=== PATIENT | male | born 1965 | race Caucasian/White ===

== ENCOUNTER → 2018-10-08 11:26 | Outpatient (CLI) | payer BC, SELFPAY ==
[2017-04-26 14:17] VITALS: BMI 28.3
[2018-07-01 15:55] VITALS: BMI 29.7
[2018-10-08 12:46] LABS: ALB/GLOB Ratio 1.1 RATIO (0.9-2.4); AST(SGOT) 28 U/L (15-37); Alanine Aminotransfer ALT/SGPT 50 U/L (16-61); Albumin, Serum 3.9 g/dL (3.2-5.0); Alkaline Phosphatase 63 U/L (45-117); Anion Gap 6 (5-15); BUN 12 mg/dL (7-18); BUN/Creat Ratio 12.2 RATIO (10-20); Calcium,Total 8.7 mg/dL (8.5-10.1); Chloride 107 mmol/L (98-107); Cholesterol 153 mg/dL (200); Creatinine, Serum 0.98 mg/dL (0.70-1.30); EST Glomerular Filtration Rate 85 mL/min (>60); Est Glom Filt Rate - Afr Amer 103 mL/min (>60); Globulin 3.6 g/dL (2.2-4.2); Glucose 94 mg/dL (74-106); High Density Lipoprotein 40 mg/dL; PSA,Total - Annual Screen 0.66 ng/mL (0.00-4.00); Potassium 4.2 mmol/L (3.5-5.1); Protein, Total 7.5 g/dL (6.4-8.2); Sodium Level 140 mmol/L (136-145); Triglycerides 134 mg/dL; Very Low Density Lipoprotein 27 mg/dL (5-40)
== END ==
PROVIDERS: Family Provider Family Medicine; PCP Family Medicine; Referring Provider Family Medicine; Visit Provider Family Medicine
DX: Z00.00 Encounter for general adult medical examination without abnormal findings (principal); Z12.5 Encounter for screening for malignant neoplasm of prostate
CPT/HCPCS: 36415; 80053; 80061; 84153; G0103

== ENCOUNTER 2018-12-05 07:51 | Day surgery (SDC) | payer BC, SELFPAY ==
[2017-04-26 14:17] VITALS: BMI 28.3
[2018-12-05 08:09] VITALS: BP 134/84; PULSE 82; RESP 16; TEMP 36.5; O2SAT 97; BMI 30.7
--- NOTE | 2018-12-05 09:00 | COLBX_PTH ---
PATIENT: DURGA MINER LOC: EN U#:[id number] AGE/SX: 53/M ROOM: RE12/05/[address]: Dr. Gabe Joaquin MD : 1965 BED: DIS: 12/05/2018 SPEC #: [id number] RECD: 12/05/18 10:53 STATUS: ROCIO KEIRY #: [id number] BERTRAND: 12/05/18 09:[address]: Gabe Joaquin DEPT: SURGICAL PATHOLOGY RECD BY: Delta Quick ENTERED: 12/05/18 12:13 SP TYPE: COLON BX OTHR DR: Dr. Romaine Sebastian DO Tissues: Sigmoid colon biopsy Procedures: Surgery Specimen Level IV HEADER OPERATION: Colonoscopy (MAC) PRE-OP DIAGNOSIS: Screening TISSUE SUBMITTED: Sigmoid polyp at 15 cm MICROSCOPIC DIAGNOSIS Sigmoid colon polyp at 15 cm, biopsy: Hyperplastic polyp. AM:mercedes 12/08/18 MICROSCOPIC DESCRIPTION Slides are reviewed. GROSS DESCRIPTION Received is one container labeled with the patient name and designated sigmoid polyp at 15 cm. The specimen consists of one irregular fragment of light hardy soft tissue that measures 0.4 x 0.2 x 0.1 cm. The specimen is totally submitted in one cassette. ZENY:mercedes 12/06/18 TC: 5 CPT: 89577
--- NOTE | 2018-12-05 09:18 | HP.PCM_ITS ---
History of Present Illness Date of Admission: 12/05/18 The patient is a 53 year old M here for screening colonoscopy. 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 The patient reports no abdominal pain or blood in his stool. He denies any family history of colon cancer. He has never had a colonoscopy in the past. Past Medical/Surgical History - Planned Operation Planned Operative Procedure/s: cscope open access Date of Operative Procedure: 12/05/18 Permit Signed: No S.O.S: No Is This Patient Having a Total Joint: No - Previous Hospitalizations/Surgeries HX Hospitalizations: No HX of Surgeries: Septoplasty. Choley. heart stent x3 Any Problems With Anesthesia: No You/Your Family Experience Fever (Hyperthermia) With Anes: No Cholinesterase deficiency: No - Cardiovascular Hx Chest Pain within Last 2 months: No Hx of Irregular Heartbeat and/or Afib: No - cad/stents/follows with dr cheema/last visit 06/2018 Hx Heart Attack: No Hx Congestive Heart Failure: No Hx Rheumatic Fever: No Hx Hypertension: Yes - controlled with med Hx Internal Defibrillator: No Hx Pacemaker: No Hx Cardiac Catheterization: Yes - 2016 [facility] What facility was last heart cath performed: [facility] Date of last Heart Cath: 2016 Hx Cardiac Surgery/Stents/Etc.: Yes - stents Hx Stress Test: Yes - 10/2017 HX Edema: No Hx Pain in Legs when Walking/Leg Cramps: No - Respiratory Chronic Cough: No HX of Shortness of Breath: Yes - slightly sob with 2 flights of stairs Hx Chronic Obstructive Pulmonary Disease (COPD): No Hx Asthma: No Hx Emphysema: No Hx Sleep Apnea: No Hx Oxygen Use at Home: No Hx Respiratory Tract Infection/Cold (presently): No Do You Snore Loudly (louder than talking or can be heard): No Do You Often Feel Tired/ Fatigued/ Sleepy Dring Daytime?: Yes Has Anyone Observed You Stop Breathing During Sleep?: No Result (for STOP score): Positive Hx Smoking: No Smoking Status: Never smoker - Gastrointestinal Hx Gastroesophageal Reflux: No Hx Gastrointestinal Disorders: No Hx Gastrointestinal Bleed: No Hx Ulcer: No Hx Hiatal Hernia: No Difficulty Chewing/Swallowing: No Recent Onset of Swallowing Problems: No Special diet followed at home: No Hx Unplanned Weight Loss of 20#: No HX Unplanned Weight Gain of 20#: No - Neurological Hx Seizures: No HX Syncope/Blackout Spells/Unconsciousness: No Hx CVA/Stroke: No Hx Transient Ischemic Attacks (TIA): No Hx Multiple Sclerosis: No Hx Parkinson's Disease: No Hx Head/Neck Injury: No Hx Headaches: No Hx Back Injury/Pain: Yes - occ back pain Recent Onset of Speech Difficulty: No Restless Legs: No Does patient have nerve stimulator: No Patient instructed to have device shut off: No Rep notified?: No - Blood Disorder Hx Leukemia: No Bleeding Tendencies: No - daily plavix and asa Hx Deep Vein Thrombosis: No Hx High Cholesterol: Yes - on med Blood Transmitted Disease: No Hx Hepatitis: No Hx Cirrhosis: No Hx Anemia: No Hx Blood Disorders: No - Genitourinary Hx Renal Disease: No Hx Dialysis: No - Musculoskeletal Hx Arthritis: No Hx Rheumatoid Arthritis: No Hx Gout: No Recent Onset of an Orthopedic Problem: No - Endocrine Hx Diabetes: No Thyroid Disease: No Hx Steroid Therapy: No - Psycho/Social Hx Substance Use: No Hx Alcohol Use: Yes - occ Hx Anxiety: No Hx Depression: No Mental Illness: No Hx Dementia: No - Miscellaneous Hx Cancer: No Recent Exposure to Contagious Disease: No Active MRSA: No Hx of C-Diff: No Any Loose Teeth: No Allergies No Known Allergies Allergy (Verified 12/01/18 11:45) - Discharge Is Pt Admitted From a Assisted, or a Alf: No Who Could Help: family After D/C, Where Do you Plan to Go: Return Home - Physical Exam General: Alert, Oriented x3, Cooperative Lungs: Normal air movement Cardiovascular: Regular rate, Regular Rhythm Abdomen: Soft, Non Tender, Non-Distended Vital Signs Temp Pulse Resp BP Pulse Ox 97.7 F L 82 16 134/84 H 97 12/05/18 08:09 12/05/18 08:09 12/05/18 08:09 12/05/18 08:09 12/05/18 08:09 Oxygen Delivery Method Room Air Weight: 219 lb 12.814 oz Body Mass Index (BMI) 30.7 Assessment/Plan All Active Problems (Last Reviewed 07/01/18 @ 16:08 by Jose Cruz Cheema MD) Abnormal nuclear stress test (Resolved) 53-year-old male with screening colonoscopy 1. I explained endoscopy in detail to the patient. I explained the risks including but not limited to stroke or heart attack with anesthesia, perforation of the GI tract, bleeding, infection. I explained that any of these could necessitate further emergency surgery. The patient understands and all questions were answered sufficiently. The patient wishes to proceed with procedure. 2. I did explain the patient is a slightly increased risk of bleeding due to the being on Plavix. Gabe Joaquin MD Pager: [facility] [address] [place] [address] [address] [place] [address] Office: Surgery Risks - Colonoscopy Risks Include but are not Limited To: Risks include but are not limited to: Bleeding, perforation requiring further surgery, inability to complete colonoscopy requiring barium enema.
[2018-12-05 09:50] VITALS: BP 104/78; BP 134/84; PULSE 78; RESP 16; TEMP 36.6; O2SAT 94
[2018-12-05 09:55] VITALS: BP 109/78; BP 134/84; PULSE 73; RESP 16; O2SAT 96
[2018-12-05 10:00] VITALS: BP 112/71; BP 134/84; PULSE 71; RESP 16; O2SAT 96
[2018-12-05 10:05] VITALS: BP 117/71; BP 134/84; PULSE 67; RESP 16; TEMP 36.4; O2SAT 96
[2018-12-05 10:27] VITALS: BP 134/84
--- OUTSIDE RECORDS SUMMARY | 2019-02-08 14:51 | XMS RPT_ITS ---
:1965 Author Organization OHIP Care Team Providers Name Role Phone Gabe Joaquin Attending Unavailable Emnai, Gabe Referring Unavailable Romaine Sebastian Primary Care Unavailable Gabe Joaquin Attending Unavailable Emani, Gabe Referring Unavailable Romaine Sebastian Primary Care Unavailable Emani, Gabe Consulting Unavailable Mel Patel Attending Unavailable Aury, [place] Attending Unavailable Romulo, Romaine Referring Unavailable Romaine Sebastian Primary Care Unavailable Aury, Jose Cruz Attending Unavailable [place], Romaine Referring Unavailable Romulo, Romaine Attending Unavailable Romulo, Romaine Referring Unavailable [place], Romaine Primary Care Unavailable Aury, [place] Consulting Unavailable Nurse, Standard Attending Unavailable Romulo, Romaine Referring Unavailable PROBLEMS PROBLEMS DATE TYPE CONDITION / CODE ATTENDING STATUS SOURCE 10/08/2018 Unknown Z12.5 - Encounter for RomuloCelia [facility] screening for [facility] malignant neoplasm of [facility] prostate / Repository Z12.5(ICD-10) 10/08/2018 Unknown Z00.00 - Encounter Romulo Active [facility] for general adult [facility] without abnormal Repository findings / Z00.00(ICD-10) 07/01/2018 Unknown E78.00 - Pure Aury, [place] Active [facility] hypercholesterolemia, Community unspecified / Hospital E78.00(ICD-10) Repository 07/01/2018 Unknown I25.118 - Aury, Jose Cruz Active Jorge A Atherosclerotic heart Community disease of [facility] coronary artery with Repository other forms of angina pectoris / I25.118(ICD-10) 02/27/2018 Unknown Z95.5 - Presence of Aury, [place] Active [facility] coronary angioplasty Community implant and graft / Hospital Z95.5(ICD-10) Repository PROCEDURES PROCEDURES No Procedure Records FoundRESULTS RESULTS HISTORY AND PHYSICAL Observed: 12/05/2018 Status: F Source: JORGE A EXAM 9:18 AM [facility] REPOSITORY [facility] Medical Records Department [address] [place] [address] History and Physical 12/05/18 09 MR#: [id number] Acct: [id number] Name: DURGA MINER Rep #: [id number] : 1965 53 From: Gabe Joaquin MD PCP: Romaine Sebastian DO Status: REG [facility] Location: [place] [address] History of Present Illness Date of Admission: 01/18/19 The patient is a 53 year old M here for screening colonoscopy. 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 The patient reports no abdominal pain or blood in his stool. He denies any family history of colon cancer. He has never had a colonoscopy in the past. Past Medical/Surgical History - Planned Operation Planned Operative Procedure/s: cscope open access Date of Operative Procedure: 12/05/18 Permit Signed: No S.O.S: No Is This Patient Having a Total Joint: No - Previous Hospitalizations/Surgeries HX Hospitalizations: No HX of Surgeries: Septoplasty. Choley. heart stent x3 Any Problems With Anesthesia: No You/Your Family Experience Fever (Hyperthermia) With Anes: No Cholinesterase deficiency: No - Cardiovascular Hx Chest Pain within Last 2 months: No Hx of Irregular Heartbeat and/or Afib: No - cad/stents/follows with dr cheema/last visit 06/2018 Hx Heart Attack: No Hx Congestive Heart Failure: No Hx Rheumatic Fever: No Hx Hypertension: Yes - controlled with med Hx Internal Defibrillator: No Hx Pacemaker: No Hx Cardiac Catheterization: Yes - 2016 [facility] What facility was last heart cath performed: [facility] Date of last Heart Cath: 2016 Hx Cardiac Surgery/Stents/Etc.: Yes - stents Hx Stress Test: Yes - 10/2017 HX Edema: No Hx Pain in Legs when Walking/Leg Cramps: No - Respiratory Chronic Cough: No HX of Shortness of Breath: Yes - slightly sob with 2 flights of stairs Hx Chronic Obstructive Pulmonary Disease (COPD): No Hx Asthma: No Hx Emphysema: No Hx Sleep Apnea: No Hx Oxygen Use at Home: No Hx Respiratory Tract Infection/Cold (presently): No Do You Snore Loudly (louder than talking or can be heard): No Do You Often Feel Tired/ Fatigued/ Sleepy Dring Daytime?: Yes Has Anyone Observed You Stop Breathing During Sleep?: No Result (for STOP score): Positive Hx Smoking: No Smoking Status: Never smoker - Gastrointestinal Hx Gastroesophageal Reflux: No Hx Gastrointestinal Disorders: No Hx Gastrointestinal Bleed: No Hx Ulcer: No Hx Hiatal Hernia: No Difficulty Chewing/Swallowing: No Recent Onset of Swallowing Problems: No Special diet followed at home: No Hx Unplanned Weight Loss of 20#: No HX Unplanned Weight Gain of 20#: No - Neurological Hx Seizures: No HX Syncope/Blackout Spells/Unconsciousness: No Hx CVA/Stroke: No Hx Transient Ischemic Attacks (TIA): No Hx Multiple Sclerosis: No Hx Parkinson's Disease: No Hx Head/Neck Injury: No Hx Headaches: No Hx Back Injury/Pain: Yes - occ back pain Recent Onset of Speech Difficulty: No Restless Legs: No Does patient have nerve stimulator: No Patient instructed to have device shut off: No Rep notified?: No - Blood Disorder Hx Leukemia: No Bleeding Tendencies: No - daily plavix and asa Hx Deep Vein Thrombosis: No Hx High Cholesterol: Yes - on med Blood Transmitted Disease: No Hx Hepatitis: No Hx Cirrhosis: No Hx Anemia: No Hx Blood Disorders: No - Genitourinary Hx Renal Disease: No Hx Dialysis: No - Musculoskeletal Hx Arthritis: No Hx Rheumatoid Arthritis: No Hx Gout: No Recent Onset of an Orthopedic Problem: No - Endocrine Hx Diabetes: No Thyroid Disease: No Hx Steroid Therapy: No - Psycho/Social Hx Substance Use: No Hx Alcohol Use: Yes - occ Hx Anxiety: No Hx Depression: No Mental Illness: No Hx Dementia: No - Miscellaneous Hx Cancer: No Recent Exposure to Contagious Disease: No Active MRSA: No Hx of C-Diff: No Any Loose Teeth: No Allergies No Known Allergies Allergy (Verified 12/01/18 11:45) - Discharge Is Pt Admitted From a Halfway, or a Mcfp: No Who Could Help: family After D/C, Where Do you Plan to Go: Return Home - Physical Exam General: Alert, Oriented x3, Cooperative Lungs: Normal air movement Cardiovascular: Regular rate, Regular Rhythm Abdomen: Soft, Non Tender, Non-Distended Vital Signs Temp Pulse Resp BP Pulse Ox 97.7 F L 82 16 134/84 H 97 12/05/18 08:09 12/05/18 08:09 12/05/18 08:09 12/05/18 08:09 12/05/18 08:09 Oxygen Delivery Method Room Air Weight: 219 lb 12.814 oz Body Mass Index (BMI) 30.7 Assessment/Plan All Active Problems (Last Reviewed 07/01/18 @ 16:08 by Jose Cruz Cheema MD) Abnormal nuclear stress test (Resolved) 53-year-old male with screening colonoscopy 1. I explained endoscopy in detail to the patient. I explained the risks including but not limited to stroke or heart attack with anesthesia, perforation of the GI tract, bleeding, infection. I explained that any of these could necessitate further emergency surgery. The patient understands and all questions were answered sufficiently. The patient wishes to proceed with procedure. 2. I did explain the patient is a slightly increased risk of bleeding due to the being on Plavix. Gabe Joaquin MD Pager: [facility] [address] [place] [address], [address] [place] [address] Office: Surgery Risks - Colonoscopy Risks Include but are not Limited To: Risks include but are not limited to: Bleeding, perforation requiring further surgery, inability to complete colonoscopy requiring barium enema. 12/05/18917 <Electronically signed by Gabe Joaquin MD> Date Gabe Joaquin MD Cosigner Signature: Date (if applicable) CC: Gabe Joaquin MD; Romaine Sebastian DO Signed COLON BIOPSY (CHOOSE Observed: 12/05/2018 Status: F Source: [facility]) 9:00 AM [facility] REPOSITORY Patient: DURGA MINER : 1965 (53/M) Acct Num: [id number] Phys: Gabe Joaquin MD Unit Num: [id number] Loc: EN Specimen: [id number] Received: 12/05/181052 Spec Type: COLON BX TISSUES 1 TISSUES: Sigmoid colon biopsy GROSS DESCRIPTION Received is one container labeled with the patient name and designated sigmoid polyp at 15 cm. The specimen consists of one irregular fragment of light hardy soft tissue that measures 0.4 x 0.2 x 0.1 cm. The specimen is totally submitted in one cassette. AM:sp 12/06/18 TC: 5 CPT: 44668 HEADER OPERATION: Colonoscopy (MAC) PRE-OP DIAGNOSIS: Screening TISSUE SUBMITTED: Sigmoid polyp at 15 cm MICROSCOPIC DESCRIPTION Slides are reviewed. MICROSCOPIC DIAGNOSIS Sigmoid colon polyp at 15 cm, biopsy: Hyperplastic polyp. AM:sp 12/08/18 Signed Pankaj Yoo DO 12/08/18 <signature on file> Performed By: #### PCOLBX #### [facility] [address] [place], [address] COMPREHENSIVE METABOLIC Collected: 10/08/2018 Status: F Source: [facility] 11:45 AM [facility] REPOSITORY TYPE CODE TESTS RESULT OUT OF RANGE REFERENCE UNITS LAB L501.0100 74-106 mg/dL Normal GLU 94 Result Comment: Please note revised GLUCOSE reference range effective 2017. LAB L501.1000 7-18 mg/dL Normal BUN 12 LAB L501.1100 0.70-1.30 mg/dL Normal CREAT,SERUM 0.98 Result Comment: The validity of the calculated GFR AND GFRAA in patients over 70 years has not been determined. Clinical correlation is essential. LAB L501.1110 >60 mL/min Normal EST GFR 85 Result Comment: Non- GFR Calc LAB L501.1115 >60 mL/min Normal EST GFR - AA 103 Result Comment: GFR Calc LAB L501.1300 10-20 RATIO Normal BUN/CRE 12.2 LAB L501.1500 6.4-8.2 g/dL T Normal PROT 7.5 LAB L501.1800 3.2-5.0 g/dL Normal ALB 3.9 LAB L501.1950 2.2-4.2 g/dL Normal GLOB 3.6 LAB L501.2000 0.9-2.4 RATIO Normal A/G 1.1 LAB L501.2200 8.5-10.1 mg/dL CA Normal 8.7 LAB L501.4100 15-37 U/L Normal AST 28 LAB L501.4305 45-117 U/L Normal ALK P 63 LAB L501.4405 16-61 U/L Normal ALT 50 LAB L501.4600 0.20-1.00 mg/dL T Normal BILI 0.70 LAB L501.5300 136-145 mmol/L NA Normal 140 LAB L501.5600 3.5-5.1 mmol/L K Normal 4.2 LAB L501.5900 98-107 mmol/L CL Normal 107 LAB L501.6100 21.0-32.0 mmol/L Normal CO2 27.0 LAB L501.6200 5-15 Normal GAP 6 Performed By: #### L500.4050, L500.4100, L501.9910 #### [facility] [address] [place], [address] LIPID PROFILE Collected: 10/08/2018 Status: F Source: JORGE A 11:45 AM [facility] REPOSITORY TYPE CODE TESTS RESULT OUT OF RANGE REFERENCE UNITS LAB L501.4900 200 mg/dL Normal CHOL 153 Result Comment: <200 mg/dL Desirable 200-240 mg/dL Borderline >240 mg/dL High Risk LAB L501.5000 mg/dL Normal TRIG 134 Result Comment: The drugs N-Acetylcysteine and Metamizole may falsely depress this assay. Serum Triglycerides Reference Interval Normal <150 mg/dL Borderline high 150 - 199 mg/dL High 200 - 499 mg/dL Very High > or = 500 mg/dL LAB L501.6400 mg/dL Normal HDL 40 Result Comment: The drugs N-Acetylcysteine and Metamizole may falsely depress this assay. Reference Range HDL <40 mg/dL Low HDL Cholesterol HDL >or= 60 mg/dL High HDL Cholesterol LAB L501.6500 0-130 mg/dL Normal LDL 86 LAB L501.6600 5-40 mg/dL Normal VLDL 27 Performed By: #### L500.4050, L500.4100, L501.9910 #### [facility] [address] [place], [place], [id number] PSA,TOTAL - ANNUAL Collected: 10/08/2018 Status: F Source: JORGE A SCREEN 11:45 AM [facility] REPOSITORY TYPE CODE TESTS RESULT OUT OF RANGE REFERENCE UNITS LAB L501.9910 0.00-4.00 ng/mL Normal PSA,TOT 0.66 SCREEN Result Comment: This test was performed using the TPSA assay method for the [employer] chemistry system. Values obtained with different assay methods cannot be used interchangably. When changing PSA assays in the course of monitoring a patient, additional sequential testing should be carried out to confirm baseline values. Performed By: #### L500.4050, L500.4100, L501.9910 #### [facility] [address] [place], [address] CARDIOLOGY VISIT Observed: 07/01/2018 Status: F Source: [place] RE[facility] 4:12 PM [facility] REPOSITORY [facility] [address] [place] [address] OFFICE VISIT Date of Service: 07/01/18 MR#: [id number] Acct: [id number] Name: DURGA MINER Rep #: [id number] : 1965 Provider: Jose Cruz Cheema MD Age/Sex: 52/M Location: [facility] Status: Signed HPI HPI Chief Complaint: Follow up visit Details: DURGA MINER, is a 52 M who presents to the office today for a follow-up cardiovascular visit. He had initially presented in October 2016 with chest discomfort he underwent stress testing which demonstrated significant ischemia he underwent angioplasty and stenting of the left anterior descending artery as well as the ramus intermedius/first diagonal vessel. He presented again in April 2017 with chest discomfort he underwent repeat angioplasty and stenting to the diagonal vessel. He also has a history of hyperlipidemia. The cardiac catheterization in April had demonstrated proximal diagonal with 90% stenosis the previous LAD stent was patent the circumflex artery was angiographic and normal in the right coronary artery was angiographically normal. He had been doing well until October 2017 when he presented again with chest discomfort. He underwent a repeat cardiac catheterization which demonstrated 90% stenosis of the stents to the left anterior descending artery and diagonal vessel. He underwent angioplasty and stenting with a drug-eluting stent with a 2.25 8 mm Promus drug-eluting stent to the diagonal vessel and a 3.0 12 mm drug-eluting stent to the left anterior descending artery. There was no encroachment of the left main coronary artery. He has done well since then but he presents for follow-up evaluation today with no chest pain or shortness breath or paroxysmal nocturnal dyspnea or pedal edema no dizziness or diaphoresis no near syncope or syncope. His physical exam today appears to be completely normal. Intake Vital Signs08/14/18 Height 6 ft 07/01/18 Weight: 219 lb 07/01/18 Body Mass Index (BMI) 29.7 07/01/18 Blood Pressure 122/72 07/01/18 Blood Pressure Location Lt brachial Intake Visit Reasons: 4 M FU Accompanied by: none Is patient in pain?: No Allergies No Known Allergies Allergy (Verified 07/01/18 15:56) Medications Ascorbic Acid [Vitamin C] 1,000 mg PO DAILY 10/19/16 [History Confirmed 07/01/18] Aspirin [Aspirin, Baby] 81 mg PO DAILY@0800 10/19/16 [History Confirmed 07/01/18] Melatonin 3 mg PO QHS PRN 10/19/16 [History Confirmed 07/01/18] Pyridoxine HCl [Vitamin B-6] 200 mg PO BID 10/19/16 [History Confirmed 07/01/18] Nitroglycerin [Nitrostat] 0.4 mg SL PRN PRN 10/29/17 [History Confirmed 07/01/18] rosuvastatin 40 mg tablet 40 mg PO QDAY #90 tab 11/28/17 [Rx Confirmed 07/01/18] clopidogrel 75 mg tablet 75 mg PO DAILY #90 tab 01/02/18 [Rx Confirmed 07/01/18] metoprolol succinate ER 25 mg tablet,extended release 24 hr 25 mg PO DAILY #90 tab 01/02/18 [Rx Confirmed 07/01/18] folic acid 400 mcg tablet 400 mcg PO QDAY 02/27/18 [History Confirmed 07/01/18] losartan 25 mg tablet 25 mg PO QDAY #30 tab 03/03/18 [Rx Confirmed 07/01/18] [facility] Medical History 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) Hyperlipidemia (Chronic) Angina pectoris, unstable (Chronic) Surgical History S/P coronary artery stent placement (Chronic) History of left heart catheterization (Chronic) Family History Father CAD (coronary artery disease) CVA (cerebral vascular accident) Hx of CABG, Onset Age: 66 and valve replacement Social History Smoking Status: Never smoker alcohol intake: current alcohol intake frequency: a few times a week Alcohol type: beer, wine substance use type: does not use caffeine: Yes Type: coffee Number of servings: 2 what type of physical activity do you participate in: none seatbelt use: always do you feel safe at home: Yes ROS Const Const: Negative for fatigue, weakness, night sweats, excessive sweating, frequent falls, headache(s) or daytime sleepiness Eyes Eyes: Negative for loss of peripheral vision, transient loss of vision, blind spots, double vision or blurry vision ENT ENT: Negative for headache(s), dizziness, balance problems, Nosebleed/epistaxis, tongue swelling or lip swelling Cardio Chest Pain: No Palpitations: No Edema: None Muscle aches with walking: None Resp Respiratory: Negative for SOB at rest, SOB orthopnea\SOB lying down, Cough, paroxysmal nocturnal dyspnea or SOB with activity GI GI: Negative nausea, vomiting, heartburn, black,tarry stools or bright, red blood in stools : Negative for hematuria Musc Musc: Negative for balance problems, muscle aches/ myalgia, muscle weakness or joint pain Skin Skin: Negative non-healing lesions, unusual bruising or rash Neuro Neuro: Negative for weakness, frequent falls, headache(s), double vision, dizziness, lightheadedness, orthostatic symptoms, blurry vision or lack of coordination Walt Hematologic/Lymphatic: Negative for easy bruising or easy bleeding Endo Endo: Negative for fatigue, excessive sweating, cold intolerance, heat intolerance, increased thirst/drinking or hair loss Psych Psych: Negative for anxiety or depression Allergy Allergy/Immunology: Negative for throat swelling, Negative for tongue swelling, Negative for hives, Negative for rash, Negative for lip swelling Cardiology Exam Const Appearance: cooperative, healthy appearing, well developed, well groomed and no acute distress Nutritional Appearance: well nourished and average body habitus Orientation: alert, awake and oriented x3 Head Head: normal to inspection, normocephalic and atraumatic Ears: hearing grossly normal bilaterally and external ears normal Nose: external nose normal, nasal mucous membranes and turbinates normal, nares normal, septum normal, no nasal discharge Face and Sinus: face symmetric Mouth: oral mucosae normal, tongue normal, oropharynx normal and moist mucous membranes Teeth and gingiva: dentition normal Throat: posterior oropharynx normal, tonsils normal and uvula midline Eyes General: appearance normal, both eyes and all related structures Eyelids: eyelids normal Conjunctivae: conjunctivae normal Pupils: PERRL, normal by confrontation and accommodation normal EOM: EOM intact bilaterally Neck Neck: normal visual inspection, trachea midline and no JVD JVD: +5 Carotids: normal carotid upstroke and bounding pulses Chest Chest inspection: normal inspection of the chest, symmetric chest movement and normal respiratory effort Auscultation: Bilateral: Clear to Auscultation Cardio Palpation: normal PMI Rate: regular rate Rhythm: regular rhythm Heart sounds: S1 normal, S2 normal and normal, physiologic split S2; negative rub, gallop or murmur GI GI: normal to inspection, soft, no hepatosplenomegaly and bowel sounds present Neuro General: alert, awake, oriented x3, no focal sensory deficit, gait normal and moves all extremities Skin Skin: no rashes or lesions noted Extremities Pulses: Normal: Right Femoral Pulse, Left Femoral Pulse, Right Dorsalis Pedis Pulse, Left Dorsalis Pedis Pulse, Right Posterior Tibial Pulse, Left Posterior Tibial Pulse, Right Radial Pulse, Left Radial Pulse Lower Extremity Edema: None: Bilateral Musculoskel Musculoskeletal: No joint tenderness Psych Psychological: normal affect Assessment AND Plan 1. 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 He appears to be doing well at this time my recommendation is to continue the current medical therapy I like to see him again in approximately 6 months and at that time consider a stress test. He is in agreement with this approach. 2. Pure hypercholesterolemia E78.00 Plan He does have a history of hyperlipidemia and I recommend that we obtain a lipid profile on his high intensity statin. No other major changes will be made. Thank you for allowing me to participate in the care of your patient. 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 [place] [address] OFFICE VISIT Date of Service: 02/27/18 MR#: [id number] Acct: [id number] Name: DURGA MINER Rep #: [id number] : 1965 Provider: Jose Cruz Cheema MD Age/Sex: 52/M Location: [facility] Status: Signed HPI HPI Chief Complaint: follow up Details: DURGA MINER, is a 52 M who presents to the office today for a follow-up cardiovascular visit. He had initially presented in October 2016 with chest discomfort he underwent stress testing which demonstrated significant ischemia he underwent angioplasty and stenting of the left anterior descending artery as well as the ramus intermedius/first diagonal vessel. He presented again in April 2017 with chest discomfort he underwent repeat angioplasty and stenting to the diagonal vessel. He also has a history of hyperlipidemia. The cardiac catheterization in April had demonstrated proximal diagonal with 90% stenosis the previous LAD stent was patent the circumflex artery was angiographic and normal in the right coronary artery was angiographically normal. He had been doing well until October 2017 when he presented again with chest discomfort. He underwent a repeat cardiac catheterization which demonstrated 90% stenosis of the stents to the left anterior descending artery and diagonal vessel. He underwent angioplasty and stenting with a drug-eluting stent with a 2.25 8 mm Promus drug-eluting stent to the diagonal vessel and a 3.0 12 mm drug-eluting stent to the left anterior descending artery. There was no encroachment of the left main coronary artery. He has done well since then but he presents for follow-up evaluation today with no chest pain or shortness breath or paroxysmal nocturnal dyspnea or pedal edema no dizziness or diaphoresis no near syncope or syncope. He is of course concerned that in 6 months time he may be presented with chest discomfort again and wants to know what his options are. He has had a bothersome cough which has not restrained his activities but is more of an irritant. His did have some concerns about whether using some supplements may help in preventing further growth of scar tissue. His physical exam today appears to be completely normal. Intake Vital Signs02/27/18 Height 6 ft 02/27/18 Weight: 217 lb 02/27/18 Body Mass Index (BMI) 29.4 02/27/18 Blood Pressure 124/80 02/27/18 Blood Pressure Location Lt brachial Intake Visit Reasons: 6 M Visitor Service Assistant Required: No Accompanied by: Is patient in pain?: No Allergies No Known Allergies Allergy (Verified 02/27/18 16:24) Medications Ascorbic Acid [Vitamin C] 1,000 mg PO DAILY 10/19/16 [History Confirmed 02/27/18] Aspirin [Aspirin, Baby] 81 mg PO DAILY@0800 10/19/16 [History Confirmed 02/27/18] Melatonin 3 mg PO QHS PRN 10/19/16 [History Confirmed 02/27/18] Pyridoxine HCl [Vitamin B-6] 200 mg PO BID 10/19/16 [History Confirmed 02/27/18] Nitroglycerin [Nitrostat] 0.4 mg SL PRN PRN 10/29/17 [History Confirmed 02/27/18] rosuvastatin 40 mg tablet 40 mg PO QDAY #90 tab 11/28/17 [Rx Confirmed 02/27/18] clopidogrel 75 mg tablet 75 mg PO DAILY #90 tab 01/02/18 [Rx Confirmed 02/27/18] metoprolol succinate ER 25 mg tablet,extended release 24 hr 25 mg PO DAILY #90 tab 01/02/18 [Rx Confirmed 02/27/18] lisinopril 5 mg tablet 5 mg PO DAILY #90 tab 01/03/18 [Rx Confirmed 02/27/18] folic acid 400 mcg tablet 400 mcg PO QDAY 02/27/18 [History Confirmed 02/27/18] [facility] Medical History 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) Hyperlipidemia (Chronic) Angina pectoris, unstable (Chronic) Surgical History S/P coronary artery stent placement (Chronic) History of left heart catheterization (Chronic) Family History Father CAD (coronary artery disease) CVA (cerebral vascular accident) Hx of CABG, Onset Age: 66 and valve replacement Social History Smoking Status: Never smoker alcohol intake: current alcohol intake frequency: a few times a week Alcohol type: beer, wine substance use type: does not use caffeine: Yes Type: coffee Number of servings: 2 what type of physical activity do you participate in: none seatbelt use: always do you feel safe at home: Yes ROS Const Const: Negative for body ache, fever(s), chills, night sweats, daytime sleepiness, difficulty sleeping, weight gain, weight loss, increased appetite, poor appetite, anorexia, other, frequent falls, headache(s), weakness, fatigue or excessive sweating Eyes Eyes: Negative for blind spots, loss of peripheral vision, transient loss of vision, change in vision, floaters, tunnel vision, other, blurry vision or double vision ENT ENT: Negative for hearing loss, tinnitus, Nosebleed/epistaxis, post nasal drip, lip swelling, tongue swelling, bleeding gums, hoarseness, neck pain, dry mouth, other, balance problems, dizziness or headache(s) Cardio Chest Pain: No Palpitations: No Edema: None Muscle aches with walking: None Resp Respiratory: Positive for Cough; negative for SOB with activity, SOB at rest, SOB orthopnea\SOB lying down, Coughing up blood/hemoptysis, chest congestion, pain on inspiration, snoring, stridor, wheezing, crackles, paroxysmal nocturnal dyspnea or other GI GI: Negative nausea, vomiting, heartburn, constipation, belching, bloating, cramping, vomiting blood/hematemesis, bright, red blood in stools, black,tarry stools, loose stools, Difficulty Swallowing or other : Negative for hematuria, frequent nighttime urination/ nocturia, erectile dysfunction or abnormal vaginal bleeding Musc Musc: Negative for muscle aches/ myalgia, muscle weakness, joint pain or balance problems Skin Skin: Negative redness, non-healing lesions, rash, unusual bruising, skin ulcer, wounds, jaundice or other Neuro Neuro: Negative for dizziness, lightheadedness, near syncope, syncope, orthostatic symptoms, frequent falls, headache(s), weakness, confusion, memory loss, restless legs, blurry vision, double vision, vertigo, seizures, lack of coordination or other Walt Hematologic/Lymphatic: Negative for easy bleeding, easy bruising or enlarged lymph nodes Endo Endo: Negative for fatigue, cold intolerance, heat intolerance, excessive sweating, flushing, increased thirst/drinking, increased hunger, hair loss, hair growth or other Psych Psych: Negative for anxiety, depression, thoughts of harming anyone, thoughts of harming yourself, panic attacks, visual hallucinations or audible hallucinations Allergy Allergy/Immunology: Negative for lip swelling, Negative for tongue swelling, Negative for rash Cardiology Exam Const Appearance: cooperative, healthy appearing, well developed, well groomed and no acute distress Nutritional Appearance: well nourished and average body habitus Orientation: alert, awake and oriented x3 Head Head: normal to inspection, normocephalic and atraumatic Ears: hearing grossly normal bilaterally and external ears normal Nose: external nose normal, nasal mucous membranes and turbinates normal, nares normal, septum normal, no nasal discharge Face and Sinus: face symmetric Mouth: oral mucosae normal, tongue normal, oropharynx normal and moist mucous membranes Teeth and gingiva: dentition normal Throat: posterior oropharynx normal, tonsils normal and uvula midline Eyes General: appearance normal, both eyes and all related structures Eyelids: eyelids normal Conjunctivae: conjunctivae normal Pupils: PERRL, normal by confrontation and accommodation normal EOM: EOM intact bilaterally Neck Neck: normal visual inspection, trachea midline and no JVD JVD: +5 Carotids: normal carotid upstroke and bounding pulses Chest Chest inspection: normal inspection of the chest, symmetric chest movement and normal respiratory effort Auscultation: Bilateral: Clear to Auscultation Cardio Palpation: normal PMI Rate: regular rate Rhythm: regular rhythm Heart sounds: S1 normal, S2 normal and normal, physiologic split S2; negative rub, gallop or murmur GI GI: normal to inspection, soft, no hepatosplenomegaly and bowel sounds present Neuro General: alert, awake, oriented x3, no focal sensory deficit, gait normal and moves all extremities Skin Skin: no rashes or lesions noted Extremities Pulses: Normal: Right Femoral Pulse, Left Femoral Pulse, Right Dorsalis Pedis Pulse, Left Dorsalis Pedis Pulse, Right Posterior Tibial Pulse, Left Posterior Tibial Pulse, Right Radial Pulse, Left Radial Pulse Lower Extremity Edema: None: Bilateral Musculoskel Musculoskeletal: No joint tenderness Psych Psychological: normal affect Assessment AND Plan 1. S/P coronary artery stent placement Z95.5 PAOLA to LAD and DX 10/22/2016; PAOLA to DX #1 04/26/2017; PAOLA to mid diagonal and proximal LAD 10/30/17 Plan He appears to be doing well at this time status post multiple stenting procedures. He is of course concerned but I reassured him that I think that he will do quite well. I like to see him again in approximately 4 months. I have suggested that he continue with a lot of supplements as well as his current medications. With regard to his chronic cough my recommendation will be to discontinue the lisinopril and place him on losartan 25 mg once a day. 2. Pure hypercholesterolemia E78.00 Plan He remains on high intensity statin which will not be changed. Repeat lipid profile be performed at the appropriate time. Thank you for allowing me to participate in the care of your patient. Please don't hesitate to call if any issues arise Plan Detail Follow Up 4 Months (linen folder) Coding Level of Care Code Off vis,est,level 4 Diagnoses S/P coronary artery stent placement Z95.5 Pure hypercholesterolemia E78.00 Hyperlipidemia type: pure hypercholesterolemia Coding Level of Care Code Off vis,est,level 4 Diagnoses S/P coronary artery stent placement Z95.5 Pure hypercholesterolemia E78.00 Hyperlipidemia type: pure hypercholesterolemia 02/27/18 1659 <Electronically signed by Jose Cruz Cheema MD> Date Jose Cruz Cheema MD Cosigner Signature: Date (if applicable) CC: Romaine Romulo DO ALLERGIES ALLERGIES DATE TYPE / CODE NAME / CODE REACTION SEVERITY SOURCE 12/01/2018 Drug No Known Unknown Jorge A [facility] Allergy/4160 Allergies/F00 Hospital 06642(SNOMED [id number](RXNOR Repository CT) M) ENCOUNTERS ENCOUNTERS ADMIT/DISCHARGE ACCOUNT ADMITTING ENCOUNTER LOCATION SOURCE NUMBER CLASS 12/05/2018 [id number] Ambulatory BMSBuilding:B Jorge A 0 MS.[facility] Repository 12/05/2018/ [id number] Ambulatory [place] Ever[place] 9 2 [facility] ing:ENRoom: Repository AC14 10/24/2018/ [id number] Ambulatory BMSBuilding:B Jorge A 8 7 [facility] Repository 10/08/2018 [id number] Ambulatory [place] Jorge A 4 [facility] ing:LAB Repository 07/01/2018/ [id number] Ambulatory BMSBuilding:B Everly 8 2 [facility] Repository 02/27/2018/ [id number] Ambulatory BMSBuilding:B Ever[place] 8 1 [facility] Repository 02/25/2018 [id number] Ambulatory BMS Jorge A 3 [facility] Repository PAYERS PAYERS ENCOUNTER GUARANTOR PAYER SUBSCRIBER SOURCE 12/05/2018 DURGA Deleon Primary DURGA Jules [id number] S Insurance:ANTHEMPolic NUSSBAUMDOB: Community PATINO RDAPPLE y Number: [id number] [id number] Repository 184[address]Exz: [phone]) gato Date:7904-37-33ER [phone] () [address], [place] [address]UX: 12/05/2018 Secondary NOT GIVENUNK Everly Insurance:SELF PAY [facility] Number: Effective Repository Date:2018-12-05 12/05/2018 DURGA Deleon Primary DURGA Jules [id number] S Insurance:ANTHEMPolic NUSSBAUMDOB: Community PATINO RDAPPLE y Number: [id number], [place] [id number] Repository 256[address]Gal: [phone]) gato Date:6019-12-56LW [phone] () [address], [place] [address]PT: 12/05/2018 Secondary NOT GIVENUNK Everly Insurance:SELF PAY [facility] Number: Effective Repository Date:2018-10-24 10/24/2018 DURGA Deleon Primary DURGA Jules [id number] S Insurance:ANTHEMPolic NUSSBAUMDOB: Community PATINO RDAPPLE y Number: [id number], [place] [id number] Repository [address]Wgo: [phone] gato Date:8811-93-47ID [phone] () [address], [place] [address]VX: 10/24/2018 Secondary NOT GIVENUNK Ever[place] Insurance:SELF PAY [facility] Number: Effective Repository Date:2018-10-24 10/08/2018 DURGA Deleon Primary DURGA Jules [id number] S Insurance:ANTHEMPolic NUSSBAUMDOB: Community PATINO RDAPPLE y Number: [id number], [place] [id number] Repository [address]Rvc: [phone]) gato Date:0446-63-11YT [phone] () [address], [place] [address]HP: 10/08/2018 Secondary NOT GIVENUNK Jorge A Insurance:SELF PAY [facility] Number: Effective Repository Date:2018-10-08 07/01/2018 DURGA Deleon Primary DURGA Jules [id number] S Insurance:ANTHEMPolic NUSSBAUMDOB: Community PATINO RDAPPLE y Number: [id number], [place] [id number] Repository [address]Kvj: [phone]) gato Date:5957-20-12KS [phone] () [address], [place] [address]WF: 07/01/2018 Secondary NOT GIVENUNK Jorge A Insurance:SELF PAY [facility] Number: Effective Repository Date:2018-07-01 02/27/2018 DURGA Deleon Primary DURGA Jules [id number] S Insurance:ANTHEMPolic NUSSBAUMDOB: Community PATINO RDAPPLE y Number: [id number], [place] [id number] Repository [address]Kwi: [phone]) gato Date:7987-16-77WD [phone] () [address] [place] [address]GY: 02/27/2018 Secondary NOT GIVENUNK Jorge A Insurance:SELF PAY [facility] Number: Effective Repository Date:2018-02-27 02/25/2018 DURGA Deleon Primary DURGA Jules [id number] S Insurance:ANTHEMPolic NUSSBAUMDOB: Community PATINO RDAPPLE y Number: [id number], [place] [id number] Repository [address]Oek: [phone]) gato Date:7502-37-26DF [phone] () [address], [place] [address]UT: 02/25/2018 Secondary NOT GIVENUNK Everly Insurance:SELF PAY [facility] Number: Effective Repository Date:2018-02-25
== END 2018-12-05 10:29 | disposition home or self-care (01) ==
LOC: EN 07:51 → AC 07:52
PROVIDERS: Family Provider Family Medicine; PCP Family Medicine; Referring Provider Surgery; Visit Provider Surgery
PROC: 0DJD8ZZ Inspection of Lower Intestinal Tract, Via Natural or Artificial Opening Endoscopic (ICD-10-PCS; CPT 45378; principal; 2018-12-05 08:55)
DX: Z12.11 Encounter for screening for malignant neoplasm of colon (principal); K63.5 Polyp of colon; I25.10 Atherosclerotic heart disease of native coronary artery without angina pectoris; I10 Essential (primary) hypertension; E78.00 Pure hypercholesterolemia, unspecified; Z79.82 Long term (current) use of aspirin; Z79.899 Other long term (current) drug therapy; Z79.02 Long term (current) use of antithrombotics/antiplatelets; Z95.5 Presence of coronary angioplasty implant and graft
CPT/HCPCS: 45385; 88305; J7120

== ENCOUNTER → 2019-02-02 06:26 | Outpatient (CLI) | payer BC, SELFPAY ==
[2017-04-26 14:17] VITALS: BMI 28.3
[2019-01-13 14:55] VITALS: BMI 30.6
--- NOTE | 2019-02-02 10:08 | STRESSREP_ITS ---
Stress Test Report Exercise myocardial perfusion stress test. 53-year-old man with a history of coronary artery disease status post previous stenting of the left anterior descending artery and diagonal vessel. Medications: Metoprolol rosuvastatin losartan clopidogrel. Stress protocol: Resting EKG demonstrates normal sinus rhythm with a rate of 69 bpm normal intervals are noted resting blood pressure 120/84 mmHg. The patient exercised according to the regular Live protocol for a total duration of 9 minutes and 31 seconds. The maximum heart rate attained was 166 bpm which was 98% of maximum predicted heart rate. Patient completed 31 seconds to stage IV of the Live protocol. At rest there were no ST or T wave changes noticed ischemia peak exer cise upsloping ST changes were noted with no meet the criteria for ischemia. The resting blood pressure 120/84 with a peak blood pressure 168/70 no clinical angina was noted the test was terminated due to shortness of breath. Myocardial perfusion protocol. 11.5 mCi of technetium 99m sestamibi was injected at rest. The patient exercised according to regular Live protocol at peak exercise 33.8 mCi of technetium 99m sestamibi was injected stress images were obtained stress and rest images were reconstructed and compared in the short axis vertical and horizontal long axis. Gated images was obtained Perfusion SPECT analysis: Review of the stress images demonstrate normal uptake of tracer noted in all areas of myocardium. The resting images similarly demonstrate normal uptake of tracer noted in all areas of the myocardium. No areas of reversibility are noted suggest ischemia. Gated SPECT analysis: The gated ejection fraction is noted to be 70%. Conclusion: Normal exercise myocardial perfusion stress test at a high workload. No clinical angina noted. Preserved ejection fraction. Excellent functional capacity.
== END ==
PROVIDERS: Family Provider Family Medicine; PCP Family Medicine; Referring Provider Internal Medicine Cardiovascular Disease; Visit Provider Internal Medicine Cardiovascular Disease
DX: I25.10 Atherosclerotic heart disease of native coronary artery without angina pectoris (principal); Z95.5 Presence of coronary angioplasty implant and graft
CPT/HCPCS: 78452; 93017; A9500; A4216

== ENCOUNTER → 2019-08-01 11:53 | Outpatient (CLI) | payer BC, SELFPAY ==
[2017-04-26 14:17] VITALS: BMI 28.3
[2019-07-28 14:05] VITALS: BMI 30.7
[2019-08-01 13:17] LABS: AST(SGOT) 19 U/L (15-37); Alanine Aminotransfer ALT/SGPT 40 U/L (16-61); Albumin, Serum 4.1 g/dL (3.2-5.0); Alkaline Phosphatase 62 U/L (45-117); Bilirubin, Direct 0.14 mg/dL (0.00-0.30); Cholesterol 132 mg/dL (200); Globulin 3.4 g/dL (2.2-4.2); High Density Lipoprotein 42 mg/dL; Protein, Total 7.5 g/dL (6.4-8.2); Triglycerides 85 mg/dL; Very Low Density Lipoprotein 17 mg/dL (5-40)
== END ==
PROVIDERS: Family Provider Internal Medicine; PCP Internal Medicine; Referring Provider Internal Medicine Cardiovascular Disease; Visit Provider Internal Medicine Cardiovascular Disease
DX: E78.00 Pure hypercholesterolemia, unspecified (principal)
CPT/HCPCS: 36415; 80061; 80076

== ENCOUNTER → 2020-11-07 12:24 | Outpatient (CLI) | payer BC, SELFPAY ==
[2017-04-26 14:17] VITALS: BMI 28.3
[2020-10-20 15:29] VITALS: BMI 31.4
[2020-11-07 14:22] LABS: AST(SGOT) 26 U/L (15-37); Alanine Aminotransfer ALT/SGPT 57 U/L (16-61); Albumin, Serum 3.9 g/dL (3.2-5.0); Alkaline Phosphatase 96 U/L (45-117); Bilirubin, Direct 0.19 mg/dL (0.00-0.30); Cholesterol 205 mg/dL (200); Globulin 3.4 g/dL (2.2-4.2); High Density Lipoprotein 44 mg/dL; Protein, Total 7.3 g/dL (6.4-8.2); Triglycerides 243 mg/dL; Very Low Density Lipoprotein 49 mg/dL (5-40)
== END ==
PROVIDERS: PCP Internal Medicine; Visit Provider Nurse Practitioner Family
DX: E78.00 Pure hypercholesterolemia, unspecified (principal)
CPT/HCPCS: 36415; 80061; 80076

== ENCOUNTER → 2021-07-25 06:23 | Outpatient (CLI) | payer BC, SELFPAY ==
[2017-04-26 14:17] VITALS: BMI 28.3
[2021-05-23 15:51] VITALS: BMI 32.8
[2021-07-25 09:27] LABS: AST(SGOT) 29 U/L (15-37); Alanine Aminotransfer ALT/SGPT 65 U/L (16-61); Albumin, Serum 3.7 g/dL (3.2-5.0); Alkaline Phosphatase 93 U/L (45-117); Bilirubin, Direct 0.17 mg/dL (0.00-0.30); Cholesterol 131 mg/dL (200); Globulin 3.3 g/dL (2.2-4.2); High Density Lipoprotein 34 mg/dL; Triglycerides 207 mg/dL; Very Low Density Lipoprotein 41 mg/dL (5-40)
--- NOTE | 2021-07-25 15:19 | STRESSREP_ITS ---
Stress Test Report Date: 07-25-2021 Procedure: Exercise tolerance test/imaging study Indications: CAD; PCI Consent: Per the patient Procedure: The patient exercised on a Live protocol for 8 minutes completing Stage II and 2 minutes of Stage III achieving a peak heart rate of 169 bpm (101% predicted maximal heart rate) with a peak blood pressure 182/80 mmHg and a peak MET capacity of 9 METs. The baseline ECG demonstrated normal sinus rhythm. The peak exercise ECG demonstrated no obvious ECG changes. There were no cardiac dysrhythmias pretest, during exercise, or recovery. The functional capacity was considered good. There was no complaint of chest discomfort during exercise or recovery. The examination was discontinued secondary to dyspnea. Impression: 1. Technically adequate (percent predicted maximal heart rate greater than 85%) exercise tolerance test 2. Peak exercise ECG with no obvious ECG change 3. There were no cardiac dysrhythmias pretest, during exercise, or recovery 4. Nuclear images pending Myocardial perfusion imaging study: Technique: The patient was injected with 14.6 mCi of technetium 99m Cardiolite and subsequ ently rest SPECT Cardiolite nuclear imaging was obtained in the horizontal long, vertical long, and short axis views. The patient exercised on a Live protocol for 8 minutes completing Stage II and 2 minutes of Stage III achieving a peak heart rate of 169 bpm (101% predicted maximal heart rate) with a peak blood pressure 182/80 mmHg and a peak MET capacity of 9 METs. The patient was injected with 44.8 mCi of technetium 99m Cardiolite and subsequently stress SPECT Cardiolite nuclear imaging was obtained in the horizontal long, vertical long, and short axis views. A gated Cardiolite study at peak stress was obtained. Interpretation: Rest and stress SPECT Cardiolite nuclear imaging status post realignment, normalization, and attenuation correction, demonstrates the appearance of relative uniform tracer uptake and myocardial perfusion appearing within normal limits. There is end systolic thickening and brightening. The gated Cardiolite study demonstrates myocardial thickening and inward wall motion. The reported LVEF is 71%. Impression: 1. Rest and stress SPECT Cardiolite nuclear imaging demonstrate relative uniform tracer uptake and myocardial perfusion appearing within normal limits. 2. The gated Cardiolite study reports an LVEF of 71%. This note was generated with [employer] software. It may contain incorrect words, spelling, and punctuation that were not noted in checking the note before signing.
== END ==
PROVIDERS: Nurse Practitioner Family; PCP Internal Medicine; Referring Provider Internal Medicine Cardiovascular Disease; Visit Provider Internal Medicine Cardiovascular Disease
DX: E78.00 Pure hypercholesterolemia, unspecified (principal); Z95.5 Presence of coronary angioplasty implant and graft
CPT/HCPCS: 36415; 78452; 80061; 80076; 93017; A9500; A4216

== ENCOUNTER → 2022-10-10 | Outpatient (CLI) | payer BC, SELFPAY ==
[2017-04-26 14:17] VITALS: BMI 28.3
[2022-10-10 12:22] LABS: AST(SGOT) 22 U/L (15-37); Alanine Aminotransfer ALT/SGPT 52 U/L (16-61); Albumin, Serum 3.8 g/dL (3.2-5.0); Alkaline Phosphatase 89 U/L (45-117); Bilirubin, Direct 0.15 mg/dL (0.00-0.30); Cholesterol 151 mg/dL (200); Globulin 3.2 g/dL (2.2-4.2); High Density Lipoprotein 43 mg/dL; Triglycerides 162 mg/dL; Very Low Density Lipoprotein 32 mg/dL (5-40)
== END | disposition home or self-care (01) ==
LOC: LAB 11:10
PROVIDERS: PCP Internal Medicine; Referring Provider Nurse Practitioner Gerontology; Visit Provider Nurse Practitioner Gerontology
DX: E78.00 Pure hypercholesterolemia, unspecified (principal)
CPT/HCPCS: 36415; 80061; 80076

== ENCOUNTER → 2023-03-25 | Outpatient (CLI) | payer BC, SELFPAY ==
[2017-04-26 14:17] VITALS: BMI 28.3
== END | disposition home or self-care (01) ==
LOC: LABSPEC 09:58
PROVIDERS: PCP Internal Medicine; Referring Provider Physician Assistant Surgical; Visit Provider Physician Assistant Surgical
DX: J02.9 Acute pharyngitis, unspecified (principal)
CPT/HCPCS: 87880

== ENCOUNTER → 2024-01-21 | Outpatient (CLI) | payer BC, SELFPAY ==
[2017-04-26 14:17] VITALS: BMI 28.3
[2024-01-21 17:21] LABS: AST(SGOT) 25 U/L (15-37); Alanine Aminotransfer ALT/SGPT 48 U/L (16-61); Albumin, Serum 4.1 g/dL (3.2-5.0); Alkaline Phosphatase 83 U/L (45-117); Bilirubin, Direct 0.16 mg/dL (0.00-0.30); Cholesterol 168 mg/dL (200); Globulin 3.3 g/dL (2.2-4.2); High Density Lipoprotein 39 mg/dL; Protein, Total 7.4 g/dL (6.4-8.2); Triglycerides 219 mg/dL; Very Low Density Lipoprotein 44 mg/dL (5-40)
== END | disposition home or self-care (01) ==
LOC: LAB 16:05
PROVIDERS: PCP Internal Medicine; Referring Provider Internal Medicine Cardiovascular Disease; Visit Provider Internal Medicine Cardiovascular Disease
DX: E78.5 Hyperlipidemia, unspecified (principal)
CPT/HCPCS: 36415; 80061; 80076

== ENCOUNTER → 2024-03-06 | Outpatient (CLI) | payer BC, SELFPAY ==
[2017-04-26 14:17] VITALS: BMI 28.3
[2024-03-06 15:26] LABS: Absolute Lymphocyte Count 2.69 X10^3/uL (0.83-4.51); Absolute Neutrophil Count 3.5 X10^3/uL (2.0-7.7); Basophil# 0.07 X10^3/uL; Eosinophil# 0.27 X10^3/uL; Eosinophils% 3.9 % (0-5); Hematocrit 46.5 % (40-54); Hemoglobin 15.6 g/dL (13.0-16.5); Lymphocyte # 2.69 X10^3/ul (0.83-4.51); Mean Corp Hgb Conc 33.5 g/dL (32-36); Mean Corpuscular Hgb 30.1 pg (27.0-32.0); Mean Corpuscular Volume 89.6 fL (80-94); Mean Platelet Vol. 10.1 fl (6.2-12.0); Monocyte# 0.39 X10^3/uL; Monocyte% 5.7 % (0-10); NRBC Flagged by Analyzer 0 % (0-5); Neutrophil # 3.47 X10^3/uL (2.7-7.7); Neutrophil % 50.3 % (47-70); Platelet Count 260 K/mm3 (150-450); RBC Distribution Width CV 12.7 % (11.6-14.6); RBC Distribution Width SD 41.9 fl (35.1-43.9); Red Blood Count 5.19 M/mm3 (4.6-6.2); White Blood Count 6.9 K/mm3 (4.4-11.0)
[2024-03-06 15:52] LABS: Anion Gap 5 (5-15); BUN 18 mg/dL (7-18); BUN/Creat Ratio 17.8 RATIO (10-20); Calcium,Total 9.6 mg/dL (8.5-10.1); Chloride 107 mmol/L (98-107); Creatinine, Serum 1.01 mg/dL (0.70-1.30); EST Glomerular Filtration Rate 81 mL/min (>60); Est Glom Filt Rate - Afr Amer 98 mL/min (>60); Glucose 152 mg/dL (74-106); PSA,Total - Annual Screen 0.63 ng/mL (0.00-4.00); Sodium Level 142 mmol/L (136-145)
[2024-03-06 17:28] LABS: Hemoglobin A1c 6.1 % (3.8-5.6)
== END | disposition home or self-care (01) ==
LOC: BIMLAB 14:03
PROVIDERS: PCP Internal Medicine; Referring Provider Internal Medicine; Visit Provider Internal Medicine
DX: Z00.00 Encounter for general adult medical examination without abnormal findings (principal); Z12.5 Encounter for screening for malignant neoplasm of prostate; E78.5 Hyperlipidemia, unspecified; R73.9 Hyperglycemia, unspecified
CPT/HCPCS: 36415; 80048; 83036; 84153; 85025; G0103

== ENCOUNTER → 2024-09-04 | Outpatient (CLI) | payer BC, SELFPAY ==
[2017-04-26 14:17] VITALS: BMI 28.3
--- NOTE | 2024-09-04 07:04 | ECHOCS_ITS ---
Reason For Study: MURMUR Procedure This was a 2D Doppler, Color Flow transthoracic echocardiogram. The study was technically difficult. Due to poor accoustic windows. Contrast injection was performed. Exam performed in department. Left Ventricle Normal LV size. Left ventricular systolic function is normal. The left ventricular ejection fraction is 65 %. Stage 1 diastolic dysfunction. No regional wall motion abnormalities noted. Right Ventricle Normal RV size. Normal systolic function. Atria Normal left atrium. Normal right atrium. Mitral Valve Normal mitral valve. Tricuspid Valve Normal tricuspid valve. Mild (1+) tricuspid valve insufficiency. Pulmonary artery systolic pressure is 34 mmHg. Aortic Valve Normal aortic valve. Mild (1+) eccentric aortic valve insufficiency. Pulmonic Valve The pulmonic valve is not well visualized. Great Vessels Normal aortic root. The pulmonary artery is normal size. Inferior vena cava collapse with respiration. Pericardium/Pleural No pericardial effusion. Medication Diluted definity 2.0ml given slow IV push to enhance endocardial definition. MMode/2D Measurements & Calculations LVIDd: 4.1 cm IVSd: 0.89 cm Ao root diam: 3.1 cm LVIDs: 2.9 cm LVPWd: 1.0 cm RVDd: 3.2 cm FS: 30.7 % LAV(MOD-bp): 56.7 ml LVAd ap4: 32.1 cm2 LVAd ap2: 28.8 cm2 LAV(MOD-bp) Indexed: 25.3 ml/m2 LVLd ap4: 8.6 cm LVLd ap2: 8.5 cm LAV(MOD-sp2): 55.3 ml EDV(MOD-sp4): 95.0 ml EDV(MOD-sp2): 81.1 ml LAV(MOD-sp4): 55.3 ml EDV(sp4-el): 101.3 ml EDV(sp2-el): 82.4 ml LVAs ap4: 17.0 cm2 LVAs ap2: 17.7 cm2 LVLs ap4: 7.2 cm LVLs ap2: 7.7 cm ESV(MOD-sp4): 33.2 ml ESV(MOD-sp2): 34.3 ml ESV(sp4-el): 34.0 ml ESV(sp2-el): 34.8 ml EF(MOD-sp4): 65.0 % EF(MOD-sp2): 57.8 % EF(sp4-el): 66.4 % SV(MOD-sp4): 61.7 ml SV(MOD-sp2): 46.9 ml SV(sp4-el): 67.3 ml LA A4 area: 19.5 cm2 LA dimension(2D): 3.3 cm RA A4 area: 15.3 cm2 TAPSE: 2.2 cm Time Measurements MV dec time: 0.17 sec Doppler Measurements & Calculations MV E max watson: 60.7 cm/sec Lat Peak E' Watson: 12.2 cm/sec Med Peak E' Watson: 9.3 cm/sec MV A max watson: 73.4 cm/sec E/E' lat: 5.0 E/E' med: 6.5 MV E/A: 0.83 MV V2 max: 86.1 cm/sec MV P1/2t max watson: 72.3 cm/sec Ao V2 max: 150.9 cm/sec MV max P.0 mmHg MV P1/2t: 60.0 msec Ao max P.1 mmHg MV V2 mean: 46.4 cm/sec Ao V2 mean: 104.0 cm/sec MV mean P.0 mmHg MV dec slope: 352.8 cm/sec2 Ao mean P.0 mmHg MV V2 VTI: 21.9 cm MVA(P1/2t): 3.7 cm2 Ao V2 VTI: 31.2 cm AV (velocity ratio): 0.78 AI max watson: 415.5 cm/sec LV V1 max: 120.1 cm/sec PA V2 max: 146.0 cm/sec AI max P.1 mmHg LV V1 max P.8 mmHg PA V2 mean: 98.4 cm/sec AI dec slope: 187.2 cm/sec2 LV V1 mean P.3 mmHg AI P1/2t: 650.0 msec LV V1 mean: 85.6 cm/sec LV V1 VTI: 24.3 cm TR max watson: 276.9 cm/sec TR max P.7 mmHg ECHO/Echo Complete W/ Contrast Interpretation Summary Normal LV size. Left ventricular systolic function is normal. The left ventricular ejection fraction is 65 %. Stage 1 diastolic dysfunction. Pulmonary artery systolic pressure is 34 mmHg. Contrast injection was performed. Ordering Physician: Gage Jason Referring Physician: Tala Temple Performed By: Krystle Haas, DAYSI, RVT
--- NOTE | 2024-09-04 11:55 | STRESSREP ---
Stress Test Report Exercise myocardial perfusion stress test. 58-year-old man with a history of coronary artery disease Stress protocol: Resting EKG demonstrates normal sinus rhythm with a rate of 67 bpm resting blood pressure is 140/82 mmHg. The patient exercised according to the regular Live protocol for a total duration of 8 minutes attaining a maximum heart rate of 155 bpm which was 95% of maximum predicted heart rate; the maximum workload was 10.1 metabolic equivalents. At rest there were no ST or T wave changes noted to suggest ischemia and at peak exercise upsloping ST changes only were noted which did not meet the criteria for ischemia. No clinical angina was noted the test was terminated due to the target heart rate being achieved/fatigue. The peak blood pressure was 178/70 mmHg. Rate-pressure product was 27,200. Myocardial perfusion protocol. 14.3 mCi of technetium 99m sestamibi was injected at rest. The patient exercised according to regular Live protocol for total duration of 8 minutes and at peak exercise 43.7 mCi of technetium 99m sestamibi was injected stress images were obtained stress and rest images were reconstructed in comparing the short axis vertical long and horizontal long axis. Gated images were also obtained. Perfusion SPECT analysis: Review of the stress images demonstrate normal uptake of tracer noted in all areas of the myocardium. The resting images similarly demonstrate normal uptake of tracer noted in all areas of the myocardium. No areas of reversibility are noted to suggest ischemia no previous infarct was noted. Gated SPECT analysis: The gated ejection fraction is 71%. Conclusion: Normal exercise myocardial perfusion stress test at a high workload Preserved ejection fraction.
== END | disposition home or self-care (01) ==
LOC: CVS 07:04
PROVIDERS: PCP Internal Medicine; Referring Provider Nurse Practitioner Family; Visit Provider Nurse Practitioner Family
DX: R01.1 Cardiac murmur, unspecified (principal); R73.03 Prediabetes; E78.00 Pure hypercholesterolemia, unspecified; Z95.5 Presence of coronary angioplasty implant and graft
CPT/HCPCS: 78452; 93017; 93306; A9500; Q9957; A4216; C8929

== ENCOUNTER 2025-03-26 00:52 | Emergency (ER) | payer BC, SELFPAY ==
[2017-04-26 14:17] VITALS: BMI 28.3
[2025-03-26 00:54] VITALS: BP 147/89; PULSE 82; RESP 18; TEMP 36.8; O2SAT 99; BMI 32.5
[2025-03-26 01:32] LABS: Absolute Lymphocyte Count 3.83 X10^3/uL (0.83-4.51); Absolute Neutrophil Count 4.6 X10^3/uL (2.0-7.7); Basophil# 0.07 X10^3/uL; Basophil% 0.7 % (0-1); Eosinophil# 0.29 X10^3/uL; Hematocrit 46.7 % (40-54); Hemoglobin 16.1 g/dL (13.0-16.5); Lymphocyte # 3.83 X10^3/ul (0.83-4.51); Lymphocyte % 40.2 % (19-41); Mean Corp Hgb Conc 34.5 g/dL (32-36); Mean Platelet Vol. 10.7 fl (6.2-12.0); Monocyte# 0.75 X10^3/uL; Monocyte% 7.9 % (0-10); NRBC Flagged by Analyzer 0 % (0-5); Neutrophil # 4.55 X10^3/uL (2.7-7.7); Neutrophil % 47.9 % (47-70); POSITIVE COUNT YES; RBC Distribution Width CV 12.9 % (11.6-14.6); RBC Distribution Width SD 40.5 fl (35.1-43.9); Red Blood Count 5.37 M/mm3 (4.6-6.2); White Blood Count 9.5 K/mm3 (4.4-11.0)
[2025-03-26 01:48] LABS: ALB/GLOB Ratio 1.8 RATIO (0.9-2.4); AST(SGOT) 33 U/L (<=37); Alanine Aminotransfer ALT/SGPT 36 U/L (<=46); Albumin, Serum 4.1 g/dL (3.5-5.0); Alkaline Phosphatase 74 U/L (40-129); Anion Gap 14 (5-15); BUN 20 mg/dL (4-19); BUN/Creat Ratio 20.1 RATIO (10-20); Calcium,Total 9.1 mg/dL (7.6-11.0); Carbon Dioxide 21.6 mmol/L (21.0-32.0); Chloride 105 mmol/L (98-108); Creatinine, Serum 1.01 mg/dL (0.70-1.20); EST Glomerular Filtration Rate 86 (>60); Estimated Creatinine Clearance 98.64 ml/min (50-250); Globulin 2.3 g/dL (2.2-4.2); Glucose 138 mg/dL (70-99); Potassium 3.9 mmol/L (3.3-5.1); Protein, Total 6.5 g/dL (5.9-8.4); Sodium Level 140 mmol/L (133-145); Total Bilirubin 0.49 mg/dL (0.00-1.30)
[2025-03-26 02:09] LABS: Red Blood Cells-Urine 0 SEEN /hpf (0-5); Squamous Epithelial Cells - UA 0 SEEN /hpf (0-5); White Blood Cells 0 SEEN /hpf (0-5)
[2025-03-26 02:17] LABS: Differential Indicated SCAN CRITERIA MET
[2025-03-26 02:18] LABS: Differential Comment SCANNED; Platelet Estimate ADEQUATE (ADEQ)
[2025-03-26 02:20] LABS: Color, Urine Amber (Yellow); Glucose, Dipstick Normal (Normal); Ketone-Dipstick 5 mg/dl (Negative); Leukocyte Esterase-Dipstick 25 /ul (Negative); Nitrite-Dipstick Negative (Negative); Occult Blood-Urine 250 /ul (Negative); Protein-Dipstick 100 mg/dl (Negative); Urine Bilirubin Dipstick Negative (Negative); Urine Clarity Cloudy (Clear); Urine Urobilinogen 1 mg/dl (Normal)
--- NOTE | 2025-03-26 02:39 | CT_ITS ---
PROCEDURE: ABDOMEN/PELVIS WITHOUT CONT 03/26/2025 REASON FOR EXAM: LEFT FLANK PAIN TECHNIQUE: Abdomen and pelvis CT without intravenous contrast. Noncontrast technique limits evaluation of the abdominal and pelvic viscera. Coronal and Sagittal reconstruction series were provided. One or more dose reduction techniques were used (e.g., Automated exposure control, adjustment of the mA and/or kV according to patient size, use of iterative reconstruction technique). PATIENT PREPARATION: Per protocol ORAL CONTRAST TYPE: None. COMPARISON: None available FINDINGS: Mild dependent atelectasis. Heavy appearing proximal and mid LAD and possibly diagonal coronary calcification and/or stents. Status post cholecystectomy. The liver, adrenal glands, pancreas and spleen appear within limits on noncontrast imaging. No renal stones or hydronephrosis. Bilateral symmetric appearing perinephric stranding is nonspecific. Punctate small calcification at the left pelvis along the area of the distal left ureter approximately 2 cm from the UVJ possible ureteral stone. The left ureter is not dilated. The abdominal aorta appears within limits on noncontrast imaging without aneurysm. No adenopathy identified. No bowel dilation or free air. Thin, atretic appearing appendix without secondary signs. The bladder appears within limits. No free fluid. The prostate appears within limits. Rightward curvature, scoliosis. CT/Abdomen/Pelvis without Cont IMPRESSION: Punctate small calcification at the left pelvis along the area of the distal le ft ureter approximately 2 cm from the UVJ possible ureteral stone. The left ureter is not dilated. No renal stones or hydronephrosis. Bilateral symmetric appearing perinephric st randing is nonspecific. Heavy appearing proximal and mid LAD and possibly diagonal coronary calcificati on and/or stents. Status post cholecystectomy. Reading Location: [id number]
[2025-03-26 02:53] VITALS: BP 128/86; PULSE 78; RESP 15; O2SAT 96
[2025-03-26] MEDS: 0.9% Normal Saline (1000mL) 1,000 ML 999 ML IV (03:02)
[2025-03-26 03:04] LABS: Amorphous Sediment 4+; Bacteria 1+ /hpf (None Seen); Calcium Oxalate Crystals Ur 2+ /hpf (<or=2+); Mucous, Urine 2+ /hpf (<or=2+)
--- NOTE | 2025-03-26 03:36 | EX.ED.DYSGE1 ---
HPI History of Present Illness Chief Complaint: Flank Pain Informant: patient Narrative Narrative: Patient is a 59-year-old male with past ministry of hypertension hyperlipidemia and CAD. He states he went to bed normally and then awoke around midnight with sharp pain in his left back which was wrapping towards his left side of abdomen. He states there has been no recent trauma or excessive activity. He states the pain did not seem to improve or worsen with motion. He states it caused nausea to the point of almost having bouts of vomiting. He states that he did not know why his symptoms were occurring and secondary to this presents ER for evaluation. 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 Hyperlipidemia Angina pectoris, unstable Home Medications ?Medication ?Instructions ?Recorded ?Last Taken ?Type ascorbic acid (vitamin C) 1,000 mg 1,000 mg PO DAILY 10/19/16 04/25/17 09:00 History tablet aspirin 81 mg chewable tablet 81 mg PO DAILY@0800 10/19/16 10/30/17 History melatonin 3 mg tablet 3 mg PO QHS PRN Insomnia 10/19/16 04/25/17 21:00 History pyridoxine (vitamin B6) 100 mg 200 mg PO BID 10/19/16 04/25/17 20:00 History tablet multivitamin 1 tab PO DAILY 02/16/20 Unknown History folic acid 400 mcg tablet 800 mcg PO QDAY 12/04/22 Unknown History omega-3 900 mg-dha 360 mg-epa 455 cap PO 12/04/22 Unknown History mg-fish oil 1,000 mg capsule (Fish Oil) vitamin K2 100 mcg capsule 100 mcg PO DAILY 12/04/22 Unknown History zinc acetate 50 mg (zinc) capsule 50 mg PO DAILY 06/10/23 Unknown History (Galzin) nitroglycerin 0.4 mg sublingual See Rx Instructions .Route 08/22/23 Unknown Rx tablet .COMPLEX #75 tabs cholecalciferol (vitamin D3) 350 10,000 unit PO ONCE 01/21/24 Unknown History mcg (14,000 unit) capsule meloxicam 15 mg tablet 15 mg PO QDAY 08/17/24 Unknown History vitamin C 500 mg-quercetin 250 cap PO 08/17/24 Unknown History mg-bioflavonoids, citrus 33 mg capsule (Quercetin Complex) clopidogrel 75 mg tablet 75 mg PO .COMPLEX #90 tabs 02/16/25 Unknown Rx ezetimibe 10 mg tablet (Zetia) 10 mg PO .COMPLEX #90 tabs 02/16/25 Unknown Rx losartan 25 mg tablet 25 mg PO .COMPLEX #90 tabs 02/16/25 Unknown Rx rosuvastatin 40 mg tablet 40 mg PO .COMPLEX #90 tabs 02/16/25 Unknown Rx cephalexin 500 mg capsule 500 mg PO BID 7 days #14 caps 03/26/25 Unknown Rx ibuprofen 600 mg tablet 600 mg PO 4X/DAY PRN pain #40 tabs 03/26/25 Unknown Rx oxycodone-acetaminophen 5 mg-325 1 tab PO Q6H PRN pain 3 days #12 03/26/25 Unknown Rx mg tablet (Endocet) tabs tamsulosin 0.4 mg capsule (Flomax) 0.4 mg PO DAILY 14 days #14 caps 03/26/25 Unknown Rx Allergy/AdvReac Type Severity Reaction Status Date / Time No Known Allergies Allergy Verified 03/26/25 00:53 Family History Father CAD (coronary artery disease) CVA (cerebral vascular accident) Hx of CABG, Onset Age: 65 and valve replacement Mother Dementia Surgical History History of cholecystectomy History of left heart catheterization Social History Smoking Status: Never smoker alcohol intake: current alcohol intake frequency: a few times a week Alcohol type: beer and wine substance use type: does not use caffeine: Yes Type: coffee Number of servings: 2 what type of physical activity do you participate in: walking frequency: 3-4 times per week seatbelt use: always do you feel safe at home: Yes ROS ROS ED Constitutional Constitutional ED: Denies chills or fever(s) ENT ENT ED: Denies sore throat Cardiovascular Cardiovascular: Denies chest pain Respiratory/Chest Respiratory/Chest: Denies cough or dyspnea Gastrointestinal Gastrointestinal: Reports abdominal pain; Denies diarrhea, nausea or vomiting Genitourinary Genitourinary ED: Denies dysuria or hematuria Musculoskeletal Musculoskeletal: Reports back pain Integumentary Denies rash Neurologic Neurologic: Denies headache(s) Hematologic/Lymphatic Hematologic/Lymphatic: Denies easy bleeding or easy bruising EXAM Physical Exam Const Vital Signs: 03/26/25 00:54 03/26/25 02:53 03/26/25 03:43 Temperature 98.2 F 98.2 F Temperature Source Oral Pulse Rate 82 78 79 Respiratory Rate 18 15 18 Blood Pressure 147/89 H 128/86 H 146/80 H Blood Pressure Mean 108 100 102 Pulse Ox 99 96 95 Oxygen Delivery Method Room Air Room Air Positive well nourished and well developed General Appearance ED: well developed; Negative for pallor HEENT HEENT Narrative: Normocephalic atraumatic Eyes PERRL and EOMs intact bilaterally General Eye ED: Negative for scleral icterus Neck supple Neck Narrative: No nuchal rigidity or meningeal signs Resp normal respiratory effort and clear to auscultation bilaterally Cardio regular rate and regular rhythm Rate: other Other Details: Heart is regular rate and rhythm without murmurs rubs or gallops Radial and carotid pulses are equal and symmetric GI normal to inspection, nondistended, normoactive bowel sounds, non-tender, non-distended and no masses GI Narrative: No voluntary guarding or rigidity or pulsatile mass Auscultation: normoactive bowel sounds Palpation: soft Back/Spine Back/Spine Narrative: Mild left CVA pain is noted No bony deformity or step-off of the thoracic or lumbar spine no midline tenderness to palpation No overlying soft tissue changes to suggest trauma or infection Extremity normal to inspection Neuro oriented x3, CN's II-XII intact bilaterally and no sensory deficits noted Sensorium / Orientation: alert Motor Exam: strength 5/5 throughout Psych mental status grossly normal Skin no rashes or lesions noted and no wounds General Skin Exam: Negative for jaundice or pallor MDM MDM MDM Narrative Medical decision making narrative: Patient arrived to the ER mildly hypertensive but otherwise with stable vitals. He reported sudden onset of unilateral flank pain. Differential diagnosis is for kidney stone versus UTI versus pyelonephritis. In order to check for underlying infectious process such as UTI/pyelonephritis or acute kidney injury basic blood work with urine sample and a noncontrast CT were obtained. Labs showed no clinically significant finding. Urine did show +1 bacteria but there is contamination with skin cells and he does not have dysuria so therefore this is most likely contamination. CT scan did show a punctate lesion along the left ureter near the UVJ which would correlate with his history. However the patient's had spontaneous resolution of his pain he does not have findings of acute kidney injury or urosepsis and therefore there is no need for further intervention. Based on the patient having a kidney stone as well as potential infection he will be started on antibiotics. However without signs of NOE or urosepsis and his pain under control he does not need to be kept in the hospital and is otherwise safe for discharge with outpatient follow-up History & Record Review Discussion w/independent historian: Patient Lab Data Attestation: I reviewed the patient's lab results. Labs: Laboratory Results - last 24 hr 03/26/25 03/26/25 01:05 02:02 WBC 9.5 RBC 5.37 Hgb 16.1 Hct 46.7 MCV 87.0 MCH 30.0 MCHC 34.5 RDW Std Deviation 40.5 RDW Coeff of Huy 12.9 Plt Count TNP MPV 10.7 Immature Gran % (Auto) 0.300 Neut % (Auto) 47.9 Lymph % (Auto) 40.2 [place] % (Auto) 7.9 Eos % (Auto) 3.0 Baso % (Auto) 0.7 Absolute Neuts (auto) 4.6 Absolute Lymphs (auto) 3.83 Nucleated RBC % 0 Differential Comment SCANNED Platelet Estimate ADEQUATE Sodium 140 Potassium 3.9 Chloride 105 Carbon Dioxide 21.6 Anion Gap 14 BUN 20 H Creatinine 1.01 Estim Creat Clear Calc 98.64 Est GFR (MDRD) Non-Af 86 BUN/Creatinine Ratio 20.1 H Glucose 138 H Calcium 9.1 Total Bilirubin 0.49 AST 33 ALT 36 Alkaline Phosphatase 74 Total Protein 6.5 Albumin 4.1 Globulin 2.3 Albumin/Globulin Ratio 1.8 Urine Color Suzanne Urine Clarity Cloudy Urine pH 5.0 Ur Specific [place] 1.030 Urine Protein 100 H Urine Glucose (UA) Normal Urine Ketones 5 H Urine Occult Blood 250 H Urine Nitrite Negative Urine Bilirubin Negative Urine Urobilinogen 1 H Ur Leukocyte Esterase 25 H Urine RBC 0 SEEN Urine WBC 0 SEEN Ur Squamous Epith Cells 0 SEEN Calcium Oxalate Crystal 2+ Amorphous Sediment 4+ Urine Bacteria 1+ Urine Mucus 2+ Radiography Diagnostic Testing: Clinical Impression(s) from Imaging Studies Abdomen/Pelvis CT 03/26/25 02:39 IMPRESSION: Punctate small calcification at the left pelvis along the area of the distal left ureter approximately 2 cm from the UVJ possible ureteral stone. The left ureter is not dilated. No renal stones or hydronephrosis. Bilateral symmetric appearing perinephric stranding is nonspecific. Heavy appearing proximal and mid LAD and possibly diagonal coronary calcification and/or stents. Status post cholecystectomy. Reading Location: [id number] Discharge Plan Triage Chief Complaint: Flank Pain ED Provider: Jhonny White Dx/Rx/DC Orders Clinical Impression: Kidney stone, Renal colic, Hyperlipidemia, Hypertension Instructions: ED Kidney Stone with Pain Prescriptions: New oxycodone-acetaminophen [Endocet] 5-325 mg tablet 1 tab PO Q6H PRN (Reason: pain) 3 Days Qty: 12 0RF ibuprofen 600 mg tablet 600 mg PO 4X/DAY PRN (Reason: pain) Qty: 40 0RF tamsulosin [Flomax] 0.4 mg capsule 0.4 mg PO DAILY 14 Days Qty: 14 0RF cephalexin 500 mg capsule 500 mg PO BID 7 Days Qty: 14 0RF No Action folic acid 400 mcg tablet 800 mcg PO QDAY multivitamin Tablet,Chewable 1 tab PO DAILY Fish Oil 900 mg-360 mg- 455 mg-1,000 mg capsule PO vitamin K2 100 mcg capsule 100 mcg PO DAILY Galzin 50 mg (zinc) capsule 50 mg PO DAILY cholecalciferol (vitamin D3) 350 mcg (14,000 unit) capsule 10,000 unit PO ONCE Quercetin Complex 500-250-33 mg capsule PO meloxicam 15 mg tablet 15 mg PO QDAY ascorbic acid (vitamin C) 1,000 MG tablet 1,000 mg PO DAILY Patient Comments: supplement melatonin 3 MG tablet 3 mg PO QHS PRN (Reason: Insomnia) Patient Comments: sleep aide aspirin 81 MG tablet,chewable 81 mg PO DAILY@0800 Patient Comments: heart health pyridoxine (vitamin B6) 100 MG tablet 200 mg PO BID Patient Comments: vitamin supplement nitroglycerin 0.4 mg tablet, sublingual See Rx Instructions .ROUTE .COMPLEX Qty: 75 1RF Dose Instruction: 0.4 MG SUBLINGUALLY EVERY 5 TO 15 MINUTES NEEDED FOR CARDIAC/CHEST PAIN Rx Instructions: 0.4 MG SUBLINGUALLY EVERY 5 TO 15 MINUTES NEEDED FOR CARDIAC/CHEST PAIN clopidogrel 75 mg tablet 75 mg PO .COMPLEX Qty: 90 3RF Rx Instructions: 75 mg orally daily: please do vacation exception, pt going out of town for 30 days; ezetimibe [Zetia] 10 mg tablet 10 mg PO .COMPLEX Qty: 90 3RF Rx Instructions: 10 mg orally daily: please do vacation exception, pt going out of town for 30 days; losartan 25 mg tablet 25 mg PO .COMPLEX Qty: 90 3RF Rx Instructions: 25 mg orally daily: please do vacation exception, pt going out of town for 30 days; rosuvastatin 40 mg tablet 40 mg PO .COMPLEX Qty: 90 3RF Rx Instructions: 40 mg orally daily: please do vacation exception, pt going out of town for 30 days; Stand Alone Forms: ED Work / School Excuse Primary Care Provider: Tala Temple Referrals: Tala Temple MD [Primary Care Provider] - Taran Bautista MD [Med Staff - Active Staff] - Activity Restrictions/Additional Instructions: Please keep yourself well-hydrated and stay active to help pass your kidney stone. Take the prescribed medications as directed to help prevent developing infection and control pain. If you develop a fever or have intractable pain despite taking your medications please return to the ER for repeat evaluation Print Language: Cymro Disposition Disposition: Home, Self Care Discharge Date/Time: 03/26/25 03:56
[2025-03-26 03:43] VITALS: BP 146/80; PULSE 79; RESP 18; TEMP 36.8; O2SAT 95
== END 2025-03-26 03:56 | disposition home or self-care (01) ==
PROVIDERS: Emergency Provider Emergency Medicine; PCP Internal Medicine; Visit Provider Emergency Medicine
DX: N20.0 Calculus of kidney (principal); I25.10 Atherosclerotic heart disease of native coronary artery without angina pectoris; I10 Essential (primary) hypertension; E78.5 Hyperlipidemia, unspecified; Z79.02 Long term (current) use of antithrombotics/antiplatelets; Z79.82 Long term (current) use of aspirin; Z79.899 Other long term (current) drug therapy
CPT/HCPCS: 74176; 80053; 81001; 85025; 96360; 99282; A4216

== ENCOUNTER → 2025-04-14 | Outpatient (CLI) | payer BC, SELFPAY ==
[2017-04-26 14:17] VITALS: BMI 28.3
[2025-04-14 13:40] LABS: Mucous, Urine 0 SEEN /hpf (<or=2+)
[2025-04-14 16:28] LABS: Anion Gap 11 (5-15); BUN 18 mg/dL (4-19); BUN/Creat Ratio 17.5 RATIO (10-20); Calcium,Total 9.3 mg/dL (7.6-11.0); Carbon Dioxide 25.6 mmol/L (21.0-32.0); Chloride 104 mmol/L (98-108); Creatinine, Serum 1.03 mg/dL (0.70-1.20); EST Glomerular Filtration Rate 84 (>60); Glucose 105 mg/dL (70-99); Potassium 4.5 mmol/L (3.3-5.1); Sodium Level 141 mmol/L (133-145)
[2025-04-14 16:33] LABS: Hemoglobin A1c 6.9 % (<=5.6)
[2025-04-14 21:15] LABS: Color, Urine Yellow (Yellow); Glucose, Dipstick Normal (Normal); Ketone-Dipstick Negative (Negative); Leukocyte Esterase-Dipstick 100 /ul (Negative); Nitrite-Dipstick Negative (Negative); Occult Blood-Urine 50 /ul (Negative); Protein-Dipstick 15 mg/dl (Negative); Specific Gravity, Urine 1.015 (1.002-1.030); Urine Bilirubin Dipstick Negative (Negative); Urine Clarity Clear (Clear); Urine Urobilinogen Normal (Normal)
[2025-04-14 21:58] LABS: Bacteria 1+ /hpf (None Seen); Red Blood Cells-Urine 0-5 SEEN /hpf (0-5); Squamous Epithelial Cells - UA 0-5 SEEN /hpf (0-5); White Blood Cells 0-5 SEEN /hpf (0-5)
== END | disposition home or self-care (01) ==
LOC: BIMLAB 13:39
PROVIDERS: PCP Internal Medicine; Referring Provider Internal Medicine; Visit Provider Internal Medicine
DX: N20.0 Calculus of kidney (principal); R73.03 Prediabetes
CPT/HCPCS: 36415; 80048; 81001; 83036; 87086

== ENCOUNTER → 2025-11-08 | Outpatient (CLI) | payer BC, SELFPAY ==
[2017-04-26 14:17] VITALS: BMI 28.3
[2025-11-08 11:29] LABS: AST(SGOT) 34 U/L (<=37); Alanine Aminotransfer ALT/SGPT 58 U/L (<=46); Albumin, Serum 4.3 g/dL (3.5-5.0); Alkaline Phosphatase 73 U/L (40-129); Bilirubin, Direct 0.28 mg/dL (0.00-0.30); Cholesterol 136 mg/dL (<=200); Globulin 2.3 g/dL (2.2-4.2); Low Density Lipoprotein Calc. 71 mg/dL; Triglycerides 155 mg/dL; Very Low Density Lipoprotein 31 mg/dL (5-40); cholesterol:hdl ratio screen 3.51
== END | disposition home or self-care (01) ==
LOC: LAB 09:56
PROVIDERS: PCP Internal Medicine; Referring Provider Nurse Practitioner Gerontology; Visit Provider Nurse Practitioner Gerontology
DX: E78.00 Pure hypercholesterolemia, unspecified (principal)
CPT/HCPCS: 36415; 80061; 80076